=== PATIENT | female | born 1965 | race Caucasian/White ===

== ENCOUNTER 2022-07-03 02:29 | Emergency (ER) | payer MEDICAID ==
[~2022-07-03] VITALS: Ht 170.2 cm; Wt 74.8 kg
[2022-07-03 02:49] VITALS: BP_SYST 155
--- NOTE | 2022-07-03 02:53 | NUR ---
PATIENT BROUGHT BACK TO BED 7, AWAITING TO BE SEEN.
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
[2022-07-03] MEDS ORDERED: KETOROLAC TROMETHAMINE 30 MG VIAL IVP ONE (04:15)
[2022-07-03] MEDS ORDERED: CLINDAMYCIN 900 mg/50mL D5W 50 ML IV ONE (04:15)
[2022-07-03] MEDS ORDERED: cefTRIAXone 1 GM in D5W 50 ML IV ONE (04:15)
[2022-07-03] MEDS ORDERED: cefTRIAXone 1 GM VIAL ONE (04:22)
--- NOTE | 2022-07-03 05:47 | NUR ---
DR. JESUS AT BEDSIDE PERFORMING I AND D.
[2022-07-03] MEDS ORDERED: HYDR-3917 PO (06:01)
[2022-07-03] MEDS ORDERED: CLIN-142 PO (06:01)
[2022-07-03] MEDS ORDERED: NAPR-686 PO (06:01)
--- NOTE | 2022-07-03 06:13 | NUR ---
Patient given written and verbal discharge instructions and verbalizes understanding. ER MD discussed with patient the results and treatment provided. Patient in stable condition. ID arm band removed. IV catheter removed intact and dressing applied, no active bleeding. Rx of ANTIBIOTICS given. Patient educated on pain management and to follow up with PMD. Pain Scale . Opportunity for questions provided and answered. Medication side effect fact sheet provided.
== END 2022-07-03 06:14 | disposition home or self-care (01) ==
LOC: SED 02:29
DX: N61.1 Abscess of the breast and nipple (principal); F12.90 Cannabis use, unspecified, uncomplicated; Z79.899 Other long term (current) drug therapy
CPT/HCPCS: 99284; 96365; 10060; 96367; 96375; J0696; J3490; J1885; J7040